=== PATIENT | male | born 1995 | race Caucasian/White ===

== ENCOUNTER 2018-08-05 11:38 | Emergency (ER) | payer SELFPAY ==
--- NOTE | 2018-08-05 14:13 | RAD REPORT ---
EXAM DESCRIPTION: RAD - Chest Pa And Lat (2 Views) - 08/05/2018 1:23 pm CLINICAL HISTORY: Persistent cough, congestion COMPARISON: October 2017 TECHNIQUE: PA and lateral views of the chest were obtained. FINDINGS: The lungs are clear. The pneumonia changes seen back in October have cleared with no jerry surable scarring remnant. Perihilar markings are minimally prominent but not clearly different from c omparison. Heart size is normal and central vasculature is within normal limits. No pleural effusion or pneumothorax seen. No acute bony finding noted. No aortic abnormality. IMPRESSION: No focal acute cardiopulmonary finding. Interstitial markings are prominent but not clearly different from comparison.
--- NOTE | 2018-08-05 14:30 | ER ---
Nurse's Notes [facility] Name: Ned Vazquez Age: 22 yrs Sex: Male : 1995 Arrival Date: 08/05/2018 Time: 11:42 Bed 2 Private MD: None, None Diagnosis: Acute bronchitis Presentation: 08/05 11:55 Presenting complaint: Patient states: Productive cough and congestion for 1 week. aj Transition of care: patient was not received from another setting of care. Onset of symptoms was July 29, 2018. Risk Assessment: Do you want to hurt yourself or someone else? Patient reports no desire to harm self or others. Initial Sepsis Screen: Does the patient meet any 2 criteria? No. Patient's initial sepsis screen is negative. Does the patient have a suspected source of infection? No. Patient's initial sepsis screen is negative. Care prior to arrival: None. 11:55 Method Of Arrival: Ambulatory aj 11:55 Acuity: REINALDO 4 aj Triage Assessment: 11:56 General: Appears in no apparent distress. comfortable, Behavior is calm, cooperative, aj appropriate for age. Pain: Denies pain. EENT: Reports nasal congestion nasal discharge. Neuro: Level of Consciousness is awake, alert, obeys commands, Oriented to person, place, time, situation, Appropriate for age. Respiratory: Reports cough that is Airway is patent Respiratory effort is even, unlabored, Respiratory pattern is regular, symmetrical. Derm: Skin is intact, is healthy with good turgor, Skin is pink, warm \T\ dry. normal. Historical: - Allergies: 11:56 PENICILLINS; aj - Home Meds: 11:56 levothyroxine 200 mcg tab 1 tab once daily [Active]; aj - PMHx: 11:56 Asthma; Hypothyroidism; aj - PSHx: 11:56 Ear Tubes; aj - Immunization history:: Adult Immunizations up to date. - Social history:: Smoking status: Patient/guardian denies using tobacco. - Ebola Screening: : Patient negative for fever greater than or equal to 101.5 degrees Fahrenheit, and additional compatible Ebola Virus Disease symptoms Patient denies exposure to infectious person Patient denies travel to an Ebola-affected area in the 21 days before illness onset No symptoms or risks identified at this time. Screenin:07 Abuse screen: Denies threats or abuse. Denies injuries from another. Nutritional ch screening: No deficits noted. Tuberculosis screening: No symptoms or risk factors identified. Fall Risk None identified. Assessment: 13:07 General: Appears in no apparent distress. comfortable, Behavior is calm, cooperative, ch appropriate for age. Neuro: No deficits noted. Cardiovascular: Heart tones S1 S2 present Capillary refill < 3 seconds in bilateral fingers toes Clubbing of nail beds is absent Patient's skin is warm and dry. Pulses are all present. Edema is absent. Respiratory: Reports shortness of breath cough that is productive, hacking, persistent pain with cough Breath sounds are coarse in right posterior middle lobe and right posterior lower lobe. Respiratory: Airway is patent Respiratory effort is even, unlabored. EENT: Reports nasal congestion nasal discharge that is green. Derm: Skin is intact, Skin is dry, Skin is pale, Skin temperature is warm. 14:02 Reassessment: Patient appears in no apparent distress at this time. No changes from previously documented assessment. Patient and/or family updated on plan of care and expected duration. Pain level reassessed. Patient is alert, oriented x 3, equal unlabored respirations, skin warm/dry/pink. Vital Signs: 11:56 BP 123 / 61; Pulse 77; Resp 18; Temp 98.2; Pulse Ox 99% on R/A; Weight 117.93 kg; aj Height 5 ft. 10 in. (177.80 cm); 13:07 BP 112 / 68; Pulse 60; Resp 20; Temp 98.5; Pulse Ox 99% on R/A; Pain 6/10; ch 14:02 BP 125 / 63; Pulse 73; Resp 14; Pulse Ox 99% on R/A; Pain 3/10; ch 14:50 BP 100 / 51; Pulse 68; Resp 14; Pulse Ox 100% ; jl7 11:56 Body Mass Index 37.31 (117.93 kg, 177.80 cm) aj ED Course: 11:42 Patient arrived in ED. mr 11:42 None, None is Private Physician. mr 11:56 Triage completed. aj 11:56 Arm band placed on left wrist. Patient placed in waiting room, Patient notified of wait aj time. X-ray ordered. 13:03 Malka Zuniga, MARA is Primary Nurse. 13:04 Yovani Obrien PA is PHCP. [facility] 13:04 Abhijeet Degroot MD is Attending Physician. [facility] 13:07 No apparent distress. Resting quietly. 13:07 Patient has correct armband on for positive identification. Placed in gown. Bed in low ch position. Call light in reach. Side rails up X 1. Adult w/ patient. Pulse ox on. NIBP on. Warm blanket given. 13:07 No provider procedures requiring assistance completed. 13:22 X-ray completed. Patient tolerated procedure well. Patient moved back from radiology. 13:40 Influenza Screen (a \T\ B) Sent. 13:40 Chest Pa And Lat (2 Views) XRAY Sent. 14:01 Chest Pa And Lat (2 Views) In Process Unspecified. EDGA 14:04 Primary Nurse role handed off by Malak Zuniga, MARA 14:50 Patient did not have IV access during this emergency room visit. jl7 Administered Medications: No medications were administered Outcome: 14:29 Discharge ordered by . [facility] 14:50 Discharged to home ambulatory. jl7 14:50 Condition: stable 14:50 Discharge instructions given to patient, Instructed on discharge instructions, follow up and referral plans. medication usage, Demonstrated understanding of instructions, follow-up care, medications, Prescriptions given X 3. 14:52 Patient left the ED. jl7 Signatures: Dispatcher [employer] EDMS Malka Zuniga, RN Gladys Martinez ch, RN Yovani Bautista PA PA jmm Rivera, Maria mr Hilario, Henry Mendoza RN RN jl7
--- NOTE | 2018-08-05 14:30 | EDPHYS ---
Physician Documentation [facility] Name: Ned Vazquez Age: 22 yrs Sex: Male : 1995 Arrival Date: 08/05/2018 Time: 11:42 Bed 2 Private MD: None, None ED Physician Abhijeet Degroot Historical: - Allergies: 08/05 11:56 PENICILLINS; aj - Home Meds: 11:56 levothyroxine 200 mcg tab 1 tab once daily [Active]; aj - PMHx: 11:56 Asthma; Hypothyroidism; aj - PSHx: 11:56 Ear Tubes; aj - Immunization history:: Adult Immunizations up to date. - Social history:: Smoking status: Patient/guardian denies using tobacco. - Ebola Screening: : Patient negative for fever greater than or equal to 101.5 degrees Fahrenheit, and additional compatible Ebola Virus Disease symptoms Patient denies exposure to infectious person Patient denies travel to an Ebola-affected area in the 21 days before illness onset No symptoms or risks identified at this time. Vital Signs: 11:56 BP 123 / 61; Pulse 77; Resp 18; Temp 98.2; Pulse Ox 99% on R/A; Weight 117.93 kg; aj Height 5 ft. 10 in. (177.80 cm); 13:07 BP 112 / 68; Pulse 60; Resp 20; Temp 98.5; Pulse Ox 99% on R/A; Pain 6/10; ch 14:02 BP 125 / 63; Pulse 73; Resp 14; Pulse Ox 99% on R/A; Pain 3/10; ch 14:50 BP 100 / 51; Pulse 68; Resp 14; Pulse Ox 100% ; jl7 11:56 Body Mass Index 37.31 (117.93 kg, 177.80 cm) aj MDM: 13:04 Patient medically screened. johnathan 14:28 Data reviewed: vital signs, nurses notes, lab test result(s), radiologic studies, plain jmm films. Counseling: I had a detailed discussion with the patient and/or guardian regarding: the historical points, exam findings, and any diagnostic results supporting the discharge/admit diagnosis, the need for outpatient follow up, to return to the emergency department if symptoms worsen or persist or if there are any questions or concerns that arise at home. 08/05 13:57 Order name: Influenza Screen (A ; Complete Time: 13:59 EDMS 08/05 11:58 Order name: Chest Pa And Lat (2 Views) XRAY aj 08/05 14:01 Order name: Chest Pa And Lat (2 Views); Complete Time: 14:30 EDMS Administered Medications: No medications were administered Disposition: 08/05/18 14:29 Discharged to Home. Impression: Acute bronchitis. - Condition is Stable. - Discharge Instructions: Acute Bronchitis, Adult. - Prescriptions for Prednisone 20 mg Oral Tablet - take 3 tablet by ORAL route once daily for 5 days; 15 tablet. Zithromax Z- Seth 250 mg Oral Tablet - take 1 tablet by ORAL route as directed for 5 days Day 1 - take two (2) tablets one time. Day 2, 3, 4 , 5 take one (1) tablet once daily.; 6 tablet. Albuterol Sulfate 90 mcg/actuation - inhale 1-2 puff by INHALATION route every 4-6 hours; 1 Inhaler. - Medication Reconciliation Form, Thank You Letter, Antibiotic Education, Prescription Opioid Use form. - Follow up: Private Physician; When: 2 - 3 days; Reason: Recheck today's complaints, Continuance of care, Re-evaluation by your physician. Addendum: 08/08/2018 07:27 Co-signature as Attending Physician, Abhijeet Degroot MD I agree with the assessment and c munguia plan of care. 08/13/2018 06:19 Addendum: This is a 22 year old male with a history of asthma and hypothyroidism that j mm presents to the ED with 1 week of cough, congestion. Patient is concerned he may have pneumonia. ROS: Positive for cough, congestion, all other systems otherwise negative. PE: Gen: NAD, Neck: Supple, Cardio: RRR, Resp: No respiratory distress, non labored, Coarse lung sounds right posterior, Abd: Non distended, Extremities: FROM in all extremities, NEURO: a x o x 3, Psych: Calm. MDM: Patient is alert and non toxic in appearance in the ED. CXR is clear, patient given strict return precautions due to previous hx of pneumonia and other comorbidities, family understood and agree with the plan of care. . Signatures: Dispatcher [employer] EDMS Gladys Hernandez RN RN aj Anderson, Corey, MD MD cha Mickail, Joel, PA PA jmm Leal, Jahala, RN RN jl7 Corrections: (The following items were deleted from the chart) 08/05 14:52 14:29 08/05/2018 14:29 Discharged to Home. Impression: Acute bronchitis. Condition is jl7 Stable. Forms are Medication Reconciliation Form, Thank You Letter, Antibiotic Education, Prescription Opioid Use. Follow up: Private Physician; When: 2 - 3 days; Reason: Recheck today's complaints, Continuance of care, Re-evaluation by your physician. rona 08/13 06:26 06:19 Addendum: This is a 22 year old male with a history of asthma and hypothyroidism rona that presents to the ED with 1 week of cough, congestion. . rona
[2018-08-05 15:03] VITALS: TEMP 98.5
[2018-08-05 15:05] VITALS: BP 100/51; O2SAT 100
== END 2018-08-05 14:52 | disposition home or self-care (01) ==
LOC: ER 11:38
DX: J20.9 Acute bronchitis, unspecified (principal); E03.9 Hypothyroidism, unspecified; Z88.0 Allergy status to penicillin
CPT/HCPCS: 71046; 87804; 99284

== ENCOUNTER 2019-03-15 14:54 | Emergency (ER) | payer OTHER, SELFPAY ==
--- OUTSIDE RECORDS SUMMARY | 2019-03-15 14:56 | XMS REPORT ---
:1995 [facility] Address [address] [place] [address] [address]. [address] [place] [address] Care Team Providers Name Role Phone Unavailable Unavailable Unavailable Problems This patient has no known problems. Allergies, Adverse Reactions, Alerts This patient has no known allergies or adverse reactions. Medications This patient has no known medications.
--- NOTE | 2019-03-15 16:16 | ER ---
Nurse's Notes [facility] Name: Ned Vazquez Age: 23 yrs Sex: Male : 1995 Arrival Date: 03/15/2019 Time: 14:56 Bed 28 Private MD: Diagnosis: Otitis media, unspecified, left ear;Acute pharyngitis Presentation: 03/15 15:06 Presenting complaint: Left ear pain and sore throat x 2 days. Transition of care: hb patient was not received from another setting of care. Onset of symptoms was March 14, 2019. Risk Assessment: Do you want to hurt yourself or someone else? Patient reports no desire to harm self or others. Care prior to arrival: None. 15:06 Method Of Arrival: Ambulatory 15:06 Acuity: REINALDO 4 15:24 Initial Sepsis Screen: Does the patient meet any 2 criteria? No. Patient's initial mg2 sepsis screen is negative. Does the patient have a suspected source of infection? No. Patient's initial sepsis screen is negative. Historical: - Allergies: 15:07 PENICILLINS; hb - Home Meds: 15:07 levothyroxine 200 mcg tab 1 tab once daily [Active]; hb - PMHx: 15:07 Asthma; Hypothyroidism; hb - PSHx: 15:07 Ear Tubes; hb - Immunization history:: Adult Immunizations up to date. - Social history:: Smoking status: Patient/guardian denies using tobacco. - Ebola Screening: : No symptoms or risks identified at this time. Screenin:23 Abuse screen: Denies threats or abuse. Denies injuries from another. Nutritional mg2 screening: No deficits noted. Tuberculosis screening: No symptoms or risk factors identified. Fall Risk None identified. Assessment: 15:21 General: Appears in no apparent distress. comfortable, Behavior is calm, cooperative. mg2 Pain: Complains of pain in throat Pain does not radiate. Pain currently is 2 out of 10 on a pain scale. Quality of pain is described as aching, Pain began 2-3 days ago. Is intermittent. Neuro: Level of Consciousness is awake, alert, obeys commands, Oriented to person, place, time, situation. Cardiovascular: Capillary refill < 3 seconds Patient's skin is warm and dry. Respiratory: Airway is patent Respiratory effort is even, unlabored, Respiratory pattern is regular, symmetrical, Breath sounds are clear bilaterally. in mediastinum, right upper lobe, left upper lobe, right middle lobe, left lower lobe and right lower lobe. GI: No signs and/or symptoms were reported involving the gastrointestinal system. : No signs and/or symptoms were reported regarding the genitourinary system. EENT: Throat is reddened has patchy exudate bilaterally. Derm: Skin is intact, is healthy with good turgor, Skin is pink, warm \T\ dry. normal. Musculoskeletal: Circulation, motion, and sensation intact. Capillary refill < 3 seconds. 16:27 Reassessment: Patient appears in no apparent distress at this time. Patient and/or mg2 family updated on plan of care and expected duration. Pain level reassessed. Patient is alert, oriented x 3, equal unlabored respirations, skin warm/dry/pink. Vital Signs: 15:07 BP 134 / 78; Pulse 76; Resp 16; Temp 98.4; Pulse Ox 100% on R/A; Pain 4/10; hb 16:27 BP 123 / 78; Pulse 80; Resp 18; Pulse Ox 100% on R/A; mg2 ED Course: 14:56 Patient arrived in ED. mr 14:58 Patient's name was called from ER lobby. No response. hb 15:07 Triage completed. hb 15:07 Arm band placed on. hb 15:09 Hardik Metzger NP is PHCP. pm1 15:09 Abhijeet Degroot MD is Attending Physician. pm1 15:20 Nader Valero RN is Primary Nurse. mg2 15:23 No provider procedures requiring assistance completed. Patient did not have IV access mg2 during this emergency room visit. 15:24 Patient has correct armband on for positive identification. Door closed. mg2 15:28 Strep Sent. lt1 Administered Medications: No medications were administered Outcome: 16:15 Discharge ordered by MD. pm1 16:27 Discharged to home ambulatory. mg2 16:27 Condition: stable 16:27 Discharge instructions given to patient, Instructed on discharge instructions, follow up and referral plans. medication usage, Demonstrated understanding of instructions, follow-up care, medications, Prescriptions given X 1. 16:28 Patient left the ED. mg2 Signatures: ParrShabana cantrell mr Hardik Metzger NP FISCAL OFFICER pm1 Rani Su RN RN Nader Valero RN RN mg2 Vasquez, Michelle lt1
--- NOTE | 2019-03-15 16:16 | EDPHYS ---
Physician Documentation [facility] Name: Ned Vazquez Age: 23 yrs Sex: Male : 1995 Arrival Date: 03/15/2019 Time: 14:56 Bed 28 Private MD: ED Physician Abhijeet Degroot HPI: 03/15 15:44 This 23 yrs old Male presents to ER via Ambulatory with complaints of Sore pm1 Throat. 15:44 The patient presents with sore throat. The patient describes throat pain as constant, pm1 raw, scratchy. Onset: The symptoms/episode began/occurred yesterday. Severity of symptoms: in the emergency department the symptoms are unchanged. Modifying factors: The symptoms are alleviated by nothing, the symptoms are aggravated by swallowing, Patient's oral intake status: good unaware of sick contact. Associated signs and symptoms: Pertinent positives: Left earache, Pertinent negatives chest pain, chills, cough, fever, flu-like symptoms, headache, nausea, rhinorrhea, shortness of breath, vomiting. The patient has not recently seen a physician. Historical: - Allergies: 15:07 PENICILLINS; hb - Home Meds: 15:07 levothyroxine 200 mcg tab 1 tab once daily [Active]; hb - PMHx: 15:07 Asthma; Hypothyroidism; hb - PSHx: 15:07 Ear Tubes; hb - Immunization history:: Adult Immunizations up to date. - Social history:: Smoking status: Patient/guardian denies using tobacco. - Ebola Screening: : No symptoms or risks identified at this time. ROS: 15:46 Constitutional: Negative for fever, chills, and weight loss, Eyes: Negative for injury, pm1 pain, redness, and discharge. 15:46 Neck: Negative for injury, pain, and swelling, Cardiovascular: Negative for chest pain, palpitations, and edema, Respiratory: Negative for shortness of breath, cough, wheezing, and pleuritic chest pain, Abdomen/GI: Negative for abdominal pain, nausea, vomiting, diarrhea, and constipation, Back: Negative for injury and pain, MS/Extremity: Negative for injury and deformity, Skin: Negative for injury, rash, and discoloration, Neuro: Negative for headache, weakness, numbness, tingling, and seizure. 15:46 ENT: Positive for ear pain, sore throat, Negative for drainage from ear(s), rhinorrhea, sinus congestion, sinus pain, difficulty swallowing, difficulty handling secretions, hoarseness. Exam: 15:46 Constitutional: This is a well developed, well nourished patient who is awake, alert, pm1 and in no acute distress. Head/Face: Normocephalic, atraumatic. Eyes: Pupils equal round and reactive to light, extra-ocular motions intact. Lids and lashes normal. Conjunctiva and sclera are non-icteric and not injected. Cornea within normal limits. Periorbital areas with no swelling, redness, or edema. 15:46 Neck: Trachea midline, no thyromegaly or masses palpated, and no cervical lymphadenopathy. Supple, full range of motion without nuchal rigidity, or vertebral point tenderness. No Meningismus. Chest/axilla: Normal chest wall appearance and motion. Nontender with no deformity. No lesions are appreciated. Cardiovascular: Regular rate and rhythm with a normal S1 and S2. No gallops, murmurs, or rubs. Normal PMI, no JVD. No pulse deficits. Respiratory: Lungs have equal breath sounds bilaterally, clear to auscultation and percussion. No rales, rhonchi or wheezes noted. No increased work of breathing, no retractions or nasal flaring. Abdomen/GI: Soft, non-tender, with normal bowel sounds. No distension or tympany. No guarding or rebound. No evidence of tenderness throughout. Back: No spinal tenderness. No costovertebral tenderness. Full range of motion. Skin: Warm, dry with normal turgor. Normal color with no rashes, no lesions, and no evidence of cellulitis. MS/ Extremity: Pulses equal, no cyanosis. Neurovascular intact. Full, normal range of motion. 15:46 ENT: External ear(s): are unremarkable, Ear canal(s): are normal, TM's: bulging, on the left, erythema, that is mild, on the left, Examination of the other ear shows no obvious abnormality, Nose: is normal, Mouth: is normal, no gum abnomalities, no lip abnormalities, no mucosal abnormalities, no tongue abnormalities, Posterior pharynx: Airway: normal, no evidence of obstruction, patent, erythema, that is mild, exudate, is not appreciated, peritonsillar mass, is not appreciated, pooling of secretions, is not appreciated. 15:46 Neuro: Orientation: is normal, Motor: is normal, moves all fours, strength is normal. Vital Signs: 15:07 BP 134 / 78; Pulse 76; Resp 16; Temp 98.4; Pulse Ox 100% on R/A; Pain 4/10; hb 16:27 BP 123 / 78; Pulse 80; Resp 18; Pulse Ox 100% on R/A; mg2 MDM: 15:09 Patient medically screened. pm1 15:46 Data reviewed: vital signs. Data interpreted: Pulse oximetry: on room air is 100 %. pm1 Interpretation: normal. Counseling: I had a detailed discussion with the patient and/or guardian regarding: the historical points, exam findings, and any diagnostic results supporting the discharge/admit diagnosis, lab results, the need for outpatient follow up, to return to the emergency department if symptoms worsen or persist or if there are any questions or concerns that arise at home. 03/15 15:09 Order name: Strep; Complete Time: 16:01 pm1 03/15 15:32 Order name: Flu mg2 03/15 15:33 Order name: Influenza Screen (A ; Complete Time: 16:12 EDMS 03/15 16:01 Order name: Throat Culture EDMS Administered Medications: No medications were administered Disposition: 03/15/19 16:15 Discharged to Home. Impression: Otitis media, unspecified, left ear, Acute pharyngitis. - Condition is Stable. - Discharge Instructions: Otitis Media, Adult, Pharyngitis. - Prescriptions for Zithromax Z- Seth 250 mg Oral Tablet - take 1 tablet by ORAL route as directed for 5 days Day 1 - take two (2) tablets one time. Day 2, 3, 4 , 5 take one (1) tablet once daily.; 6 tablet. - Medication Reconciliation Form, Thank You Letter, Antibiotic Education, Prescription Opioid Use form. - Follow up: Emergency Department; When: As needed; Reason: Worsening of condition. Follow up: Private Physician; When: 2 - 3 days; Reason: Recheck today's complaints, Continuance of care, Re-evaluation by your physician. - Problem is new. - Symptoms have improved. Signatures: Dispatcher [employer] EDND Hardik Metzger NP PET WALKER pm1 Rani Su RN RN hb Nader Valero RN RN mg2 Corrections: (The following items were deleted from the chart) 16:28 16:15 03/15/2019 16:15 Discharged to Home. Impression: Otitis media, unspecified, left mg2 ear; Acute pharyngitis. Condition is Stable. Forms are Medication Reconciliation Form, Thank You Letter, Antibiotic Education, Prescription Opioid Use. Follow up: Emergency Department; When: As needed; Reason: Worsening of condition. Follow up: Private Physician; When: 2 - 3 days; Reason: Recheck today's complaints, Continuance of care, Re-evaluation by your physician. Problem is new. Symptoms have improved. pm1
[2019-03-15 16:52] VITALS: TEMP 98.4; O2SAT 100
[2019-03-15 16:53] VITALS: BP 123/78
== END 2019-03-15 16:28 | disposition home or self-care (01) ==
LOC: ER 14:54
DX: H66.92 Otitis media, unspecified, left ear (principal); J02.9 Acute pharyngitis, unspecified; Z88.0 Allergy status to penicillin; E03.9 Hypothyroidism, unspecified
CPT/HCPCS: 87070; 87081; 87804; 99283

== ENCOUNTER 2020-05-09 12:40 | Emergency (ER) | payer OTHER, SELFPAY ==
--- OUTSIDE RECORDS SUMMARY | 2020-05-09 13:03 | XMS REPORT | Continuity of Care Document ---
:1995 Author Organization [facility] t Address [address] [place] [address] Dr. Bradley [address] [place] [id number] Care Team Providers Name Role Phone Unavailable Unavailable Unavailable Problems This patient has no known problems. Allergies, Adverse Reactions, Alerts This patient has no known allergies or adverse reactions. Medications This patient has no known medications. Procedures This patient has no known procedures. Results This patient has no known results.
--- NOTE | 2020-05-09 15:04 | RAD REPORT ---
EXAM DESCRIPTION: Malika Single View05/09/2020 1:53 pm CLINICAL HISTORY: cough COMPARISON: 2017 FINDINGS: The lungs appear clear of acute infiltrate. The heart is normal size IMPRESSION: No acute abnormalities displayed
--- NOTE | 2020-05-09 15:23 | EDPHYS ---
Physician Documentation [facility] Name: Ned Vazquez Age: 24 yrs Sex: Male : 1995 Arrival Date: 05/09/2020 Time: 12:42 Bed 19 Private MD: ED Physician Gume Hayden HPI: 05/09 13:40 This 24 yrs old Male presents to ER via Ambulatory with complaints of Chest cp Congestion, Back Pain. 13:40 The patient or guardian reports cough, that is intermittent, with productive sputum. cp Onset: The symptoms/episode began/occurred 3 day(s) ago. Associated signs and symptoms: Pertinent positives: fever, sore throat, mid back pain, Pertinent negatives: chest pain, diarrhea, ear ache, vomiting. Historical: - Allergies: 12:44 PENICILLINS; aa5 - PMHx: 12:44 Asthma; Hypothyroidism; aa5 - PSHx: 12:44 Ear Tubes; aa5 - Immunization history:: Adult Immunizations up to date. - Social history:: Smoking status: Patient denies any tobacco usage or history of. ROS: 13:45 Constitutional: Negative for body aches, chills, fever, poor PO intake. cp 13:45 Eyes: Negative for injury, pain, redness, and discharge. cp 13:45 ENT: Positive for sore throat, Negative for drainage from ear(s), ear pain, difficulty swallowing, difficulty handling secretions. 13:45 Respiratory: Positive for cough, Negative for shortness of breath, wheezing. 13:45 Back: Positive for pain at rest. 13:45 : Negative for urinary symptoms. 13:45 Skin: Negative for rash. 13:45 Neuro: Negative for dizziness, headache, syncope, weakness. 13:45 All other systems are negative. Exam: 13:50 Constitutional: The patient appears in no acute distress, alert, awake, cp non-diaphoretic, non-toxic, well developed, well nourished. 13:50 Head/Face: Normocephalic, atraumatic. cp 13:50 Eyes: Periorbital structures: appear normal, Conjunctiva: normal, no exudate, no injection, Lids and lashes: appear normal, bilaterally. 13:50 ENT: External ear(s): are unremarkable, Ear canal(s): are normal, clear, TM's: bulging, is not appreciated, bilaterally, dullness, bilaterally, erythema, is not appreciated, bilaterally, Nose: is normal, Mouth: Lips: moist, Oral mucosa: moist, Posterior pharynx: Airway: no evidence of obstruction, patent, Tonsils: no enlargement, no exudate, erythema, that is mild, exudate, is not appreciated. 13:50 Neck: ROM/movement: is normal, is supple, no meningismus, no nuchal rigidity, Lymph nodes: no appreciated lymphadenopathy. 13:50 Chest/axilla: Inspection: normal, Palpation: is normal, no crepitus, no tenderness. 13:50 Cardiovascular: Rate: normal, Rhythm: regular, Edema: is not appreciated, JVD: is not appreciated. 13:50 Respiratory: the patient does not display signs of respiratory distress, Respirations: normal, no use of accessory muscles, no retractions, labored breathing, is not present, Breath sounds: bronchial sounds, that are mild, are heard diffusely, decreased breath sounds, are not appreciated, stridor, is not appreciated, + upper airway congestion. wheezing: is not appreciated. 13:50 Abdomen/GI: Exam negative for discomfort, distension, guarding, Inspection: abdomen appears normal. 13:50 Back: pain, that is mild, ROM is normal. Vital Signs: 12:43 BP 116 / 61; Pulse 92; Resp 16 S; Temp 98.1(O); Pulse Ox 98% on R/A; Weight 95.25 kg aa5 (R); Height 5 ft. 10 in. (177.80 cm) (R); Pain 0/10; 15:00 BP 107 / 61; Pulse 74; Resp 17; Pulse Ox 96% ; jl7 12:43 Body Mass Index 30.13 (95.25 kg, 177.80 cm) aa5 MDM: 13:47 Patient medically screened. cp 14:00 Differential Diagnosis: Bronchitis Influenza Upper Respiratory Infection Asthma cp Exacerbation Viral Syndrome Pneumonia Other COVID-19. 15:21 Data reviewed: vital signs, nurses notes, lab test result(s), radiologic studies, plain cp films. 15:21 Counseling: I had a detailed discussion with the patient and/or guardian regarding: the cp historical points, exam findings, and any diagnostic results supporting the discharge/admit diagnosis, lab results, radiology results, to return to the emergency department if symptoms worsen or persist or if there are any questions or concerns that arise at home. ED course: VSS. Will have patient start Z-seth due to productive cough, history of frequent pneumonia and asthma. Patient instructed to self quarantine while awaiting results of COVID-19 testing. 05/09 13:32 Order name: COVID-19 cp 05/09 13:32 Order name: Flu; Complete Time: 15:20 cp 05/09 13:32 Order name: CXR XRAY; Complete Time: 15:20 cp 05/09 13:32 Order name: Strep; Complete Time: 15:20 cp 05/09 14:17 Order name: Throat Culture EDMS 05/09 13:32 Order name: Droplet/Contact Precautions; Complete Time: 13:48 cp 05/09 13:32 Order name: Labs collected and sent; Complete Time: 13:48 cp 05/09 13:32 Order name: O2 Per Protocol; Complete Time: 13:48 cp Administered Medications: No medications were administered Disposition: 05/10 14:53 Co-signature as Attending Physician, Gume Hayden MD I agree with the assessment and kdr plan of care. Disposition: 05/09/20 15:22 Discharged to Home. Impression: Acute bronchitis, unspecified. - Condition is Stable. - Discharge Instructions: Acute Bronchitis, Adult. - Prescriptions for Tessalon Perles 100 mg Oral Capsule - take 2 capsule by ORAL route every 8 hours As needed; 30 capsule. Zithromax Z- Seth 250 mg Oral Tablet - take 1 tablet by ORAL route as directed for 5 days Day 1 - take two (2) tablets one time. Day 2, 3, 4 , 5 take one (1) tablet once daily.; 6 tablet. Albuterol Sulfate 90 mcg/actuation - inhale 1-2 puff by INHALATION route every 4-6 hours; 1 Inhaler. - Medication Reconciliation Form, Thank You Letter, Antibiotic Education, Prescription Opioid Use form. - Follow up: Private Physician; When: 2 - 3 days; Reason: Worsening of condition. - Problem is new. - Symptoms are unchanged. Signatures: Dispatcher [employer] Gume Erazo MD MD kdr Calderon, Audri RN RN aa5 Abhijeet Chavez PA PA cp Garland, Jahala, RN RN jl7 Corrections: (The following items were deleted from the chart) 05/09 15:36 15:22 05/09/2020 15:22 Discharged to Home. Impression: Acute bronchitis, unspecified. jl7 Condition is Stable. Forms are Medication Reconciliation Form, Thank You Letter, Antibiotic Education, Prescription Opioid Use. Follow up: Private Physician; When: 2 - 3 days; Reason: Worsening of condition. Problem is new. Symptoms are unchanged. cp
--- NOTE | 2020-05-09 15:23 | ER ---
Nurse's Notes [facility] Name: Ned Vazquez Age: 24 yrs Sex: Male : 1995 Arrival Date: 05/09/2020 Time: 12:42 Bed 19 Private MD: Diagnosis: Acute bronchitis, unspecified Presentation: 05/09 12:43 Chief complaint: Patient states: productive cough with brownish/yellowish sputum, chest aa5 congestion, chills, SOB that began 3 days ago. Pt states "I think I have Pneumonia because I get it every year". Pt also reports upper back back "from coughing a lot". 12:43 Onset of symptoms was April 2020. aa5 12:43 Acuity: REINALDO 3 aa5 12:43 Method Of Arrival: Ambulatory aa5 12:43 Coronavirus screen: Surgical mask placed on patient. Patient moved to private room, aa5 placed in contact and droplet isolation with eye protection until further assessment. Patient reports a cough. Patient reports shortness of breath or difficulty breathing. Patient reports a measured and/or subjective temperature greater than 100.4F. Patient denies travel on a cruise ship or to a country the [facility] currently lists as an affected area. Patient denies contact with known and/or suspected case of COVID-19. Ebola Screen: Patient negative for fever greater than or equal to 101.5 degrees Fahrenheit, and additional compatible Ebola Virus Disease symptoms. Initial Sepsis Screen: Does the patient meet any 2 criteria? HR > 90 bpm. Does the patient have a suspected source of infection? No. Patient's initial sepsis screen is negative. Risk Assessment: Do you want to hurt yourself or someone else? Patient reports no desire to harm self or others. Historical: - Allergies: 12:44 PENICILLINS; aa5 - PMHx: 12:44 Asthma; Hypothyroidism; aa5 - PSHx: 12:44 Ear Tubes; aa5 - Immunization history:: Adult Immunizations up to date. - Social history:: Smoking status: Patient denies any tobacco usage or history of. Screenin:00 Abuse screen: Denies threats or abuse. Denies injuries from another. Nutritional jl7 screening: No deficits noted. Tuberculosis screening: No symptoms or risk factors identified. 13:00 Fall Risk None identified. jl7 Assessment: 13:00 General: Appears in no apparent distress. uncomfortable, Behavior is calm, cooperative, jl7 appropriate for age. Pain: Complains of pain in back. Neuro: Level of Consciousness is awake, alert, obeys commands, Oriented to person, place, time, situation. Cardiovascular: Patient's skin is warm and dry. Respiratory: Airway is patent Respiratory effort is even, unlabored, Respiratory pattern is regular, symmetrical. Derm: Skin is pink, warm \\T\\ dry. 14:00 Reassessment: Patient appears in no apparent distress at this time. No changes from jl7 previously documented assessment. Patient and/or family updated on plan of care and expected duration. Pain level reassessed. Patient is alert, oriented x 3, equal unlabored respirations, skin warm/dry/pink. 15:00 Reassessment: Patient appears in no apparent distress at this time. No changes from jl7 previously documented assessment. Patient and/or family updated on plan of care and expected duration. Pain level reassessed. Patient is alert, oriented x 3, equal unlabored respirations, skin warm/dry/pink. Vital Signs: 12:43 BP 116 / 61; Pulse 92; Resp 16 S; Temp 98.1(O); Pulse Ox 98% on R/A; Weight 95.25 kg aa5 (R); Height 5 ft. 10 in. (177.80 cm) (R); Pain 0/10; 15:00 BP 107 / 61; Pulse 74; Resp 17; Pulse Ox 96% ; jl7 12:43 Body Mass Index 30.13 (95.25 kg, 177.80 cm) aa5 ED Course: 12:42 Patient arrived in ED. ag5 12:43 Arm band placed on Patient placed in an exam room, on a stretcher. aa5 12:54 Triage completed. aa5 13:00 Patient has correct armband on for positive identification. Bed in low position. Call jl7 light in reach. Side rails up X 1. Pulse ox on. NIBP on. 13:23 Abhijeet Chavez PA is PHCP. cp 13:23 Gume Hayden MD is Attending Physician. cp 13:30 Flu and/or RSV swab sent to lab. Strep swab sent to lab. COVID-19 swab sent to lab. jl7 13:47 Garland, Jahala, RN is Primary Nurse. jl7 13:54 CXR XRAY In Process Unspecified. EDMS 15:09 Throat Culture Sent. jl7 15:35 No provider procedures requiring assistance completed. Patient did not have IV access jl7 during this emergency room visit. Administered Medications: No medications were administered Outcome: 15:22 Discharge ordered by . luz 15:35 Discharged to home ambulatory. jl7 15:35 Condition: stable 15:35 Discharge instructions given to patient, Instructed on discharge instructions, follow up and referral plans. medication usage, Demonstrated understanding of instructions, follow-up care, medications, Prescriptions given X 3. 15:36 Patient left the ED. jl7 Addendum: 05/13/2020 14:19 Addendum: Other Attempted to contact pt regarding negative COIVD-19 swab results. Left d m5 voice mail. 14:35 Addendum: Other pt notified of negative swab results. d m5 Signatures: Dispatcher [employer] EDCecille Monge RN RN dm5 Ute Duron, RN RN aa5 Abhijeet Chavez, LISA PA Henry Maloney RN RN jl7 Rubén Navarro ag5
[2020-05-09 15:40] VITALS: TEMP 98.1
[2020-05-09 15:41] VITALS: BP 107/61; O2SAT 96
== END 2020-05-09 15:36 | disposition home or self-care (01) ==
LOC: ER 12:40
DX: J20.9 Acute bronchitis, unspecified (principal); Z20.828 Contact with and (suspected) exposure to other viral communicable diseases; Z88.0 Allergy status to penicillin
CPT/HCPCS: 87070; 87081; 87804 ×2; 71045; 99284; U0001

== ENCOUNTER 2020-05-21 20:42 | Emergency (ER) | payer SELFPAY ==
--- OUTSIDE RECORDS SUMMARY | 2020-05-21 21:20 | XMS REPORT | Continuity of Care Document ---
:1995 Author Organization [facility] t Address [address] [place] [address] Dr. Bradley [address] [place] [id number] Care Team Providers Name Role Phone Unavailable Unavailable Unavailable Problems This patient has no known problems. Allergies, Adverse Reactions, Alerts This patient has no known allergies or adverse reactions. Medications This patient has no known medications. Procedures This patient has no known procedures. Results This patient has no known results.
[2020-05-22] MEDS ORDERED: ACETAMINOPHEN 500 MG TAB ONE (00:01)
--- NOTE | 2020-05-22 00:13 | ER ---
Nurse's Notes [facility] Name: Ned Vazquez Age: 24 yrs Sex: Male : 1995 Arrival Date: 05/21/2020 Time: 20:44 Bed 8 Private MD: Diagnosis: Bronchitis, not specified as acute or chronic Presentation: 05/21 20:52 Chief complaint: Patient states: Cough, SOB and back pain since yesterday. States he ll1 was here 2 weeks ago, diagnosed with bronchitis. Took the medications we prescribed, slowly felt better. covid test negative. No fever. Coronavirus screen: Surgical mask placed on patient. Patient moved to private room, placed in contact and droplet isolation with eye protection until further assessment. Patient reports a cough. Patient denies shortness of breath or difficulty breathing. Patient denies measured and/or subjective temperature greater than 100.4F prior to today's visit. Patient denies travel on a cruise ship or to a country the [facility] currently lists as an affected area. Patient denies contact with known and/or suspected case of COVID-19. covid test negative. Ebola Screen: Patient denies travel to an Ebola-affected area in the 21 days before illness onset. Initial Sepsis Screen: Does the patient meet any 2 criteria? No. Patient's initial sepsis screen is negative. Risk Assessment: Do you want to hurt yourself or someone else? Patient reports no desire to harm self or others. Onset of symptoms was May 20, 2020. 20:52 Method Of Arrival: Ambulatory ll1 20:52 Acuity: REINALDO 4 ll1 Historical: - Allergies: 20:54 PENICILLINS; ll1 - PMHx: 20:54 Hypothyroidism; Asthma; ll1 - PSHx: 20:54 Ear Tubes; ll1 - Immunization history:: Flu vaccine is not up to date. - Social history:: Smoking status: Patient denies any tobacco usage or history of. Patient/guardian denies using alcohol, street drugs, tobacco products. Screenin:55 Abuse screen: Denies threats or abuse. Nutritional screening: No deficits noted. jb4 Tuberculosis screening: No symptoms or risk factors identified. Fall Risk None identified. Assessment: 21:55 General: Appears in no apparent distress. uncomfortable, Behavior is calm, cooperative, jb4 appropriate for age. Pain: Complains of pain in back Pain does not radiate. Pain currently is 7 out of 10 on a pain scale. Quality of pain is described as stabbing, Is continuous. Neuro: Level of Consciousness is awake, alert, obeys commands, Oriented to person, place, time, situation. Cardiovascular: Patient's skin is warm and dry. Respiratory: Reports shortness of breath at rest on exertion cough that is productive, pain with cough pain with respiration Airway is patent Respiratory effort is even, unlabored, Respiratory pattern is regular, symmetrical, Breath sounds are clear in left upper lobe and left lower lobe Breath sounds with crackles in right upper lobe, right middle lobe, right lower lobe, left posterior upper lobe, right posterior upper lobe, left posterior lower lobe, right posterior middle lobe and right posterior lower lobe Breath sounds with wheezes in right lower lobe and right posterior lower lobe the patient has mild shortness of breath. GI: No signs and/or symptoms were reported involving the gastrointestinal system. : No signs and/or symptoms were reported regarding the genitourinary system. EENT: No signs and/or symptoms were reported regarding the EENT system. Derm: Skin is intact, Skin is pink, warm \T\ dry. Musculoskeletal: Circulation, motion, and sensation intact. Range of motion: intact in all extremities. 23:00 Reassessment: Patient appears in no apparent distress at this time. Patient and/or jb4 family updated on plan of care and expected duration. Pain level reassessed. Patient is alert, oriented x 3, equal unlabored respirations, skin warm/dry/pink. 05/22 00:26 Reassessment: Patient appears in no apparent distress at this time. Patient and/or jb4 family updated on plan of care and expected duration. Pain level reassessed. Patient is alert, oriented x 3, equal unlabored respirations, skin warm/dry/pink. Respiratory: Airway is patent Respiratory effort is even, unlabored, Respiratory pattern is regular, symmetrical, Breath sounds are clear bilaterally. Vital Signs: 05/21 20:52 BP 134 / 80; Pulse 83; Resp 18; Temp 98.5; Pulse Ox 100% ; Pain 7/10; ll1 05/22 00:00 BP 114 / 58; Pulse 63; Resp 16; Pulse Ox 98% on R/A; jb4 ED Course: 05/21 20:44 Patient arrived in ED. ag3 20:54 Triage completed. ll1 20:54 Arm band placed on Patient notified of wait time. ll1 21:40 Warm blanket given. ll1 21:48 Clint Samaniego MD is Attending Physician. mh7 21:55 Patient has correct armband on for positive identification. Placed in gown. Bed in low jb4 position. Call light in reach. Side rails up X 1. Pulse ox on. NIBP on. 22:05 Andreas Oglesby, RN is Primary Nurse. jb4 22:54 Chest Pa And Lat (2 Views) XRAY In Process Unspecified. EDMS 05/22 00:12 Moises Robins MD is Referral Physician. 7 00:27 No provider procedures requiring assistance completed. Patient did not have IV access jb4 during this emergency room visit. Administered Medications: 05/21 23:56 Drug: Tylenol 1000 mg Route: PO; jb4 05/22 00:20 Follow up: Response: No adverse reaction jb4 Outcome: 00:13 Discharge ordered by . 7 00:27 Discharged to home ambulatory. jb4 00:27 Condition: stable 00:27 Discharge instructions given to patient, Instructed on discharge instructions, follow up and referral plans. medication usage, Demonstrated understanding of instructions, follow-up care, medications, Prescriptions given X 1. 00:28 Patient left the ED. jb4 Signatures: Dispatcher [employer] [facility] Andreas Oglesby RN RN jb4 Rubi Long 3 Bhavna Chicas RN RN ll1 Clint Samaniego MD MD [facility] Corrections: (The following items were deleted from the chart) 05/21 22:13 20:52 Coronavirus screen: Proceed with normal triage. Patient reports a cough. Patient ll1 denies shortness of breath or difficulty breathing. Patient denies measured and/or subjective temperature greater than 100.4F prior to today's visit. Patient denies travel on a cruise ship or to a country the [facility] currently lists as an affected area. Patient denies contact with known and/or suspected case of COVID-19. covid test negative ll1
--- NOTE | 2020-05-22 00:14 | EDPHYS ---
Physician Documentation [facility] Name: Ned Vazquez Age: 24 yrs Sex: Male : 1995 Arrival Date: 05/21/2020 Time: 20:44 Bed 8 Private MD: ED Physician Clint Samaniego HPI: 05/21 22:57 This 24 yrs old Male presents to ER via Ambulatory with complaints of Cough. mh7 22:57 The patient or guardian reports cough, that is intermittent, with productive sputum, mh7 that is white. Onset: The symptoms/episode began/occurred 4 day(s) ago, Similar problem 2 weeks ago. Severity of symptoms: At their worst the symptoms were moderate, yesterday, in the emergency department the symptoms have improved, moderately. Modifying factors: The symptoms are alleviated by nothing, the symptoms are aggravated by nothing. Associated signs and symptoms: Pertinent negatives: chest pain, diarrhea, ear ache, fever, nausea, rhinorrhea, sore throat, vomiting. The patient has experienced similar episodes in the past, multiple times. Patient states that he has had a productive cough for 4 days. He has pain to back left rib area when he coughs. He had similar issue 2 weeks ago and was diagnosed with bronchitis. He denies any fever, chest pain, SOB, abdominal pain, nausea, vomiting, sick contacts, or recent travel.. Historical: - Allergies: 20:54 PENICILLINS; ll1 - PMHx: 20:54 Hypothyroidism; Asthma; ll1 - PSHx: 20:54 Ear Tubes; ll1 - Immunization history:: Flu vaccine is not up to date. - Social history:: Smoking status: Patient denies any tobacco usage or history of. Patient/guardian denies using alcohol, street drugs, tobacco products. ROS: 22:57 Constitutional: Negative for fever, chills, and weight loss, Eyes: Negative for injury, mh7 pain, redness, and discharge, ENT: Negative for injury, pain, and discharge, Neck: Negative for injury, pain, and swelling, Cardiovascular: Negative for chest pain, palpitations, and edema, Abdomen/GI: Negative for abdominal pain, nausea, vomiting, diarrhea, and constipation, Back: Negative for injury and pain, : Negative for injury, bleeding, discharge, and swelling, MS/Extremity: Negative for injury and deformity, Skin: Negative for injury, rash, and discoloration, Neuro: Negative for headache, weakness, numbness, tingling, and seizure, Psych: Negative for depression, anxiety, suicide ideation, homicidal ideation, and hallucinations, Allergy/Immunology: Negative for hives, rash, and allergies, Endocrine: Negative for neck swelling, polydipsia, polyuria, polyphagia, and marked weight changes, Hematologic/Lymphatic: Negative for swollen nodes, abnormal bleeding, and unusual bruising. Exam: 22:57 Constitutional: This is a well developed, well nourished patient who is awake, alert, mh7 and in no acute distress. Head/Face: Normocephalic, atraumatic. Eyes: Pupils equal round and reactive to light, extra-ocular motions intact. Lids and lashes normal. Conjunctiva and sclera are non-icteric and not injected. Cornea within normal limits. Periorbital areas with no swelling, redness, or edema. Neck: Trachea midline, no thyromegaly or masses palpated, and no cervical lymphadenopathy. Supple, full range of motion without nuchal rigidity, or vertebral point tenderness. No Meningismus. 22:57 Cardiovascular: Regular rate and rhythm with a normal S1 and S2. No gallops, murmurs, or rubs. Normal PMI, no JVD. No pulse deficits. Respiratory: Lungs have equal breath sounds bilaterally, clear to auscultation and percussion. No rales, rhonchi or wheezes noted. No increased work of breathing, no retractions or nasal flaring. Abdomen/GI: Soft, non-tender, with normal bowel sounds. No distension or tympany. No guarding or rebound. No evidence of tenderness throughout. Back: No spinal tenderness. No costovertebral tenderness. Full range of motion. Skin: Warm, dry with normal turgor. Normal color with no rashes, no lesions, and no evidence of cellulitis. MS/ Extremity: Pulses equal, no cyanosis. Neurovascular intact. Full, normal range of motion. Neuro: Awake and alert, GCS 15, oriented to person, place, time, and situation. Cranial nerves II-XII grossly intact. Motor strength 5/5 in all extremities. Sensory grossly intact. Cerebellar exam normal. Normal gait. Psych: Awake, alert, with orientation to person, place and time. Behavior, mood, and affect are within normal limits. 22:57 Chest/axilla: Inspection: normal, Palpation: tenderness, that is moderate, of the left lateral posterior chest, that totally reproduces the patient's complaints, Axilla: are normal, Lymph nodes: lymphadenopathy is not appreciated. Vital Signs: 20:52 BP 134 / 80; Pulse 83; Resp 18; Temp 98.5; Pulse Ox 100% ; Pain 7/10; ll1 05/22 00:00 BP 114 / 58; Pulse 63; Resp 16; Pulse Ox 98% on R/A; jb4 MDM: 05/21 22:32 Patient medically screened. mh7 05/22 00:10 Differential Diagnosis: Bronchitis Upper Respiratory Infection Viral Syndrome Pneumonia mh7 Other cough. Data reviewed: vital signs, nurses notes, old medical records, radiologic studies, plain films. Data interpreted: court recording monitor: rate is 83 beats/min, rhythm is normal sinus rhythm, regular, Interpretation: normal rate, normal rhythm, Pulse oximetry: on room air is 100 %. Interpretation: normal. Counseling: I had a detailed discussion with the patient and/or guardian regarding: the historical points, exam findings, and any diagnostic results supporting the discharge/admit diagnosis, radiology results, the need for outpatient follow up, to return to the emergency department if symptoms worsen or persist or if there are any questions or concerns that arise at home. Response to treatment: the patient's symptoms have resolved after treatment, the patient's blood pressure is in an acceptable range, mental status has returned to baseline, the patient no longer shows bradycardia, the patient is not short of breath, the patient is not tachycardic, the patient's pain is gone, the patient's temperature has normalized. 05/21 22:32 Order name: Chest Pa And Lat (2 Views) XRAY mh7 Administered Medications: 05/21 23:56 Drug: Tylenol 1000 mg Route: PO; jb4 05/22 00:20 Follow up: Response: No adverse reaction jb4 Disposition: 05/22/20 00:13 Discharged to Home. Impression: Bronchitis, not specified as acute or chronic. - Condition is Stable. - Discharge Instructions: Acute Bronchitis, [id number]. - Prescriptions for Tessalon Perles 100 mg Oral Capsule - take 1 capsule by ORAL route every 8 hours As needed; 15 capsule. - Medication Reconciliation Form, Thank You Letter, Antibiotic Education, Prescription Opioid Use form. - Follow up: Private Physician; When: 1 - 2 days; Reason: Worsening of condition, Recheck today's complaints, Re-evaluation by your physician. Follow up: Moises Robins MD; When: 1 - 2 days; Reason: Worsening of condition, Recheck today's complaints. - Problem is an acute exacerbation. - Symptoms have improved. Signatures: Dispatcher [employer] EDGA Andreas Oglesby RN RN jb4 Bhavna Chicas RN RN ll1 Clint Samaniego MD MD mh7 Corrections: (The following items were deleted from the chart) 00:28 00:13 05/22/2020 00:13 Discharged to Home. Impression: Bronchitis, not specified as jb4 acute or chronic. Condition is Stable. Forms are Medication Reconciliation Form, Thank You Letter, Antibiotic Education, Prescription Opioid Use. Follow up: Private Physician; When: 1 - 2 days; Reason: Worsening of condition, Recheck today's complaints, Re-evaluation by your physician. Follow up: Moises Robins; When: 1 - 2 days; Reason: Worsening of condition, Recheck today's complaints. Problem is an acute exacerbation. Symptoms have improved. mh7
[2020-05-22 01:20] VITALS: TEMP 98.5
[2020-05-22 01:27] VITALS: BP 126/82; O2SAT 100
--- NOTE | 2020-05-22 08:38 | RAD REPORT ---
EXAM DESCRIPTION: RAD - Chest Pa And Lat (2 Views) - 05/21/2020 10:58 pm CLINICAL HISTORY: COUGH Chest pain. COMPARISON: Chest Single View dated 05/09/2020; Chest Pa And Lat (2 Views) dated 08/05/2018; Chest Pa And Lat (2 Views) dated 11/16/2017; Chest Pa And Lat (2 Views) dated 05/21/2016 FINDINGS: The lungs are clear. The heart is normal in size. No displaced fractures. IMPRESSION: No acute or concerning finding suspected.
== END 2020-05-22 00:28 | disposition home or self-care (01) ==
LOC: ER 20:42
DX: J40 Bronchitis, not specified as acute or chronic (principal); Z88.0 Allergy status to penicillin
CPT/HCPCS: 71046; 99284